=== PATIENT | female | born 1995 | race Caucasian/White ===

== ENCOUNTER 2019-02-08 03:29 | Inpatient (IN) | payer OTHER ==
[~2019-02-08] VITALS: Ht 165.1 cm; Wt 72.6 kg
[2019-02-08 03:45] VITALS: BP_SYST 107
--- NOTE | 2019-02-08 03:45 | NUR ---
Pt c/o generalized and intermittent abdominal pain since 2100 last night after eating iliae sally at a green party. "It feels like someone is punching me in the stomach." Pt states that she vomited x 2 episodes around 0200 this AM. Abdomen soft, tender to RUQ, RLQ, and LLQ. Denies N/V/D at present.
--- NOTE | 2019-02-08 03:45 | NUR ---
Pt ambulatory to bed 8 for evaluation
--- NOTE | 2019-02-08 04:09 | NUR ---
ER Dr. Quiroz at bedside examining patient.
[2019-02-08] MEDS ORDERED: NACL 0.9% 1,000 ML IV ONE (04:14)
[2019-02-08] MEDS ORDERED: DIPHENHYDRAMINE INJ 50 MG/ML VIAL IVP ONE (04:15)
[2019-02-08] MEDS ORDERED: ONDANSETRON HCL 4 MG/2 ML VIAL IVP ONE ×2 (04:15→19:05)
[2019-02-08] MEDS ORDERED: MORPHINE 4 MG/ML INJ. SYRINGE IVP ONE (04:15)
--- NOTE | 2019-02-08 04:35 | NUR ---
# 20 gauge angiocath placed to RAC. Use of asceptic technique. Opsite placed over site. Blood return noted. Blood for lab drawn from site. Flushed with 10 cc of normal saline. No evidence of infiltration noted. Patient tolerated well.
--- NOTE | 2019-02-08 04:40 | NUR ---
Repeat B/P 112/78, P 88 prior to administration of Morphine.
--- NOTE | 2019-02-08 04:55 | NUR ---
Pt to CT via stretcher in stable condition.
[2019-02-08 05:01] LABS: BILIRUBIN,URINE NEGATIVE (NEGATIVE); BLOOD, URINE NEGATIVE (NEGATIVE); CLARITY/URINE CLEAR (CLEAR); COLOR,URINE YELLOW (YELLOW); GLUCOSE,URINE NEGATIVE (NEGATIVE); KETONES,URINE NEGATIVE (NEGATIVE); LEUKOCYTE ESTERASE ,URINE NEGATIVE (NEGATIVE); NITRITE, URINE NEGATIVE (NEGATIVE); PROTEIN URINE NEGATIVE (NEGATIVE); UROBILINOGEN,URINE 0.2 (0.2-1.0)
[2019-02-08 05:10] LABS: BASOPHILS % (AUTO) 0.1 % (0.0-2.0); EOSINOPHILS % (AUTO) 0.2 % (0.0-4.0); HEMATOCRIT 39.9 % (36-48); HEMOGLOBIN 13.4 g/dL (12.0-16.0); LYMPHOCYTES % (AUTO) 11.7 % (20.5-51.5); MEAN CORPUSCULAR HEMOGLOBIN 27 pg (27-31); MEAN CORPUSCULAR HGB CONC 34 % (32-36); MEAN CORPUSCULAR VOLUME 81 fL (79.0-98.0); MONOCYTES # (AUTO) 0.8 K/uL (0.0-1.0); MONOCYTES % (AUTO) 4.7 % (1.7-9.3); NEUTROPHILS # (AUTO) 14.3 K/uL (1.8-7.7); NEUTROPHILS % (AUTO) 83.3 % (40.0-70.0); PLATELET COUNT (AUTO) 360 K/uL (130-430); RED BLOOD CELL COUNT(AUTO) 4.91 MIL/uL (4.2-6.2); RED CELL DISTRIBUTION WIDTH 13.9 % (9.0-15.0); WHITE BLOOD COUNT (AUTO) 17.2 K/uL (4.8-10.8)
[2019-02-08] MEDS ORDERED: IOHEXOL 100 ML IV ONE (05:12)
--- NOTE | 2019-02-08 05:17 | NUR ---
Pt returns from CT, verbalizes improvement in pain. No needs verbalized at this time.
[2019-02-08 05:19] LABS: CALCIUM 8.6 mg/dL (8.4-11.0); CREATININE 0.55 mg/dL (0.55-1.30)
[2019-02-08 05:24] LABS: ALBUMIN 3.7 g/dL (3.4-4.8); TOTAL BILIRUBIN 0.5 mg/dL (0.0-1.0)
--- NOTE | 2019-02-08 05:28 | NUR ---
Stat Rad notified Dr. Quiroz that Pt has Appendicitis.
[2019-02-08] MEDS ORDERED: CEFAZOLIN 1 GM IVPB PREMIX 50 ML IV ONE (05:30)
--- NOTE | 2019-02-08 05:30 | NUR ---
Dr. Quiroz at bedside to discuss POC.
--- NOTE | 2019-02-08 05:55 | NUR ---
Specimens for Blood Cx X 2 and Lactic acid collected and sent to lab prior to administration of IV antibiotics.
[2019-02-08] MEDS ORDERED: MORPHINE 4 MG/ML INJ. SYRINGE IVP PRN (06:00)
[2019-02-08] MEDS ORDERED: ACETAMINOPHEN 325 MG TABLET PO PRN (06:00)
[2019-02-08] MEDS ORDERED: ONDANSETRON HCL 4 MG/2 ML VIAL IVP PRN (06:00)
--- NOTE | 2019-02-08 06:15 | NUR ---
Pt states that she usually takes Levothyroxine 50 mcg q day, but hasn't taken it in over a month. She states that she switch doctors and needs to renew the RX.
--- NOTE | 2019-02-08 06:24 | NUR ---
Patient will be admitted to care of Dr. Rosenthal. Admitted to Med/Surg unit. Will go to room 130A. Belongings list completed. Complete and up to date summary report printed. SBAR report to be given at bedside with opportunity for questions.
--- NOTE | 2019-02-08 06:46 | NUR ---
ADMISSION NOTE Received patient from ER via gurney. Patient admitted with diagnosis of Acute Appendicitis. Patient is awake, alert, oriented x4. Patient oriented to hospital room, call light, toileting, pain management and safety-teach back done. Patient informed that Yohana will be her nurse and that their room number is 130A. Personal belongings checked and Belongings List documented. Call light within reach.
--- NOTE | 2019-02-08 07:45 | NUR ---
opening note patient is resting in bed, no signs of distress at this time, educated information technology assistant light system and plan of care, patient verbalized understanding, visitor at the bedside, bed in lowest position, side rails up, bed alarm on, call light within reach, fall/safety precautions in place, patient is NPO for possible surgery, assisted patient to the bathroom and she walked steady and stable.
[2019-02-08 08:06] VITALS: BP_SYST 94
[2019-02-08] MEDS: LR 1,000 ML IV SCH ×2 (08:22→16:00)
[2019-02-08] MEDS: PIPERACILLIN/TAZO 3.375 GM in NS 50 ML IV SCH ×4 (08:22→23:51)
--- NOTE | 2019-02-08 10:32 | NUR ---
rounds patient is resting in bed, visitor at the bedside, no signs of distress at this time, IVF running and patient tolerating well, no other needs addressed at this time.
[2019-02-08 12:00] VITALS: BP_SYST 94
--- NOTE | 2019-02-08 12:07 | NUR ---
zosyn and prn pain medications patient resting in bed, family in the room, educated on medication use and side effects, patient verbalized understanding and tolerating well, no signs of distress at this time, fall/safety precautions in place.
--- NOTE | 2019-02-08 14:55 | NUR ---
procedure prep patient was given CHG prep wipes for surgery, instructed her on how to do it, patient verbalized understanding.
--- NOTE | 2019-02-08 16:40 | NUR ---
Dr Rosenthal came to see patient to go over surgery.
--- NOTE | 2019-02-08 16:55 | NUR ---
PATIENT OFF UNIT going to surgery.
[2019-02-08] MEDS ORDERED: HYDROmorphone 1 MG INJ. 1 MG/ML AMPUL IVP PRN ×2 (17:45)
[2019-02-08] MEDS ORDERED: HYDROmorphone 2 MG/ML VIAL IVP PRN (17:45)
[2019-02-08] MEDS ORDERED: METOCLOPRAMIDE HCL 10 MG/2 ML VIAL IVP PRN (17:45)
[2019-02-08] MEDS ORDERED: HYDROmorphone 1 MG INJ. 1 MG/ML AMPUL ONE (18:50)
[2019-02-08] MEDS ORDERED: fentaNYL CITRATE 250 MCG/5 ML AMP IV ONE (19:05)
[2019-02-08] MEDS ORDERED: NEOSTIGMINE METHYLSULFATE 1 MG/ML, 10 ML VIAL IVP ONE (19:05)
[2019-02-08] MEDS ORDERED: NS IRRIG SOLN 1000 ML IR ONE (19:05)
[2019-02-08] MEDS ORDERED: GLYCOPYRROLATE 0.2 MG/ML VIAL IJ ONE (19:05)
[2019-02-08] MEDS ORDERED: LR 1,000 ML IV.SOLN IV ONE (19:05)
[2019-02-08] MEDS ORDERED: MIDAZOLAM HCL 5 MG/5 ML VIAL IVP ONE (19:05)
[2019-02-08] MEDS ORDERED: ROCURONIUM BROMIDE 10 MG/ML (ZEMURON) IV ONE (19:05)
[2019-02-08] MEDS ORDERED: SEVOFLURANE 15 MIN GAS INH ONE (19:05)
[2019-02-08] MEDS ORDERED: PIPERACILLIN/TAZOBACTAM 3.375 GM/VIAL (ZOSYN) IV ONE (19:05)
[2019-02-08] MEDS ORDERED: BUPIVACAINE /EPINEPHRINE/PF 0.25% 30 ML VIAL INJ ONE (19:05)
--- NOTE | 2019-02-08 19:10 | NUR ---
Received report from the Day RN. Initial assessment done. Pt. s/p Appendectomy , just arrived from the OR Surgery @ around [id number] PM tonight. Pt. resting with @ the bedside, in Room Air, no s/s of sob/dyspnea. Breathing regular and unlabored. Pt. calm and sleeping. Denies pain and return to sleep. IVF of LR @ 100 mls./hr. continues @ the RAC G # 20.
--- NOTE | 2019-02-08 19:15 | NUR ---
CLOSING NOTE patient back from the PACU, no signs of distress at this time, vitals taken, visitor sat the bedside, bed in lowest position, side rails up, bed alarm on, call light within reach, fall/safety precautions in place, assisted patient to the bathroom and she walked steady and stable, report given to [facility] shift nurse to continue with care.
[2019-02-08 20:00] VITALS: BP_SYST 105
--- NOTE | 2019-02-08 20:00 | NUR ---
Complete assessment done. Pt. awakened, oriented x 4, with @ the bedside. Kept on NPO for 6 hrs. s/p surgery. Pt. given ice chips for dry lips and mouth. INF of LR @ 100 mls./hr continues. Provided assistance with adl's and keep pt. warm and comfortable.
--- NOTE | 2019-02-09 00:35 | NUR ---
NOTES: took over care from nurse Lind.
[2019-02-09 01:00] VITALS: BP_SYST 102
[2019-02-09] MEDS: LR 1,000 ML IV SCH ×2 (01:23→12:19)
[2019-02-09] MEDS: HYDROmorphone 1 MG INJ. 1 MG/ML AMPUL IVP PRN ×2 (01:34→10:05)
--- NOTE | 2019-02-09 01:34 | NUR ---
NOTES: pt. up to the restroom and voided. pt. medicated with IV Dilaudid for c/o post op abdominal pain. repositioned self. IV infusing via rt. antecubital. pt. at bedside. checked abdomen, with 2 small gauze dressing. instructed on deep breathing exercise.
--- NOTE | 2019-02-09 02:30 | NUR ---
NOTES: pt. checked and sleeping, noted relief from pain.
--- NOTE | 2019-02-09 05:00 | NUR ---
NOTES: pt. been sleeping, no distress. IVF infusing well. turn to sides by herself.
[2019-02-09] MEDS: PIPERACILLIN/TAZO 3.375 GM in NS 50 ML IV SCH ×2 (05:35→12:18)
--- NOTE | 2019-02-09 06:00 | NUR ---
NOTES: awakened for IV antibiotic. no complaints of pain at this time. checked abdomen with 3 small gauze dressing. pt. at bedside.
--- NOTE | 2019-02-09 06:45 | NUR ---
CLOSING NOTES; pt. went back to sleep, will start on clear liquid diet this am. pt. already ambulating to the restroom. encouraged on deep breathing. for further observation. IVF continuous. call light within reach.
[2019-02-09 07:09] LABS: BASOPHILS % (AUTO) 0.3 % (0.0-2.0); EOSINOPHILS # (AUTO) 0.1 K/uL (0.0-0.4); EOSINOPHILS % (AUTO) 0.8 % (0.0-4.0); HEMATOCRIT 36.3 % (36-48); HEMOGLOBIN 12.2 g/dL (12.0-16.0); LYMPHOCYTES # (AUTO) 2.4 K/uL (1.0-5.5); LYMPHOCYTES % (AUTO) 22.8 % (20.5-51.5); MEAN CORPUSCULAR HEMOGLOBIN 28 pg (27-31); MEAN CORPUSCULAR HGB CONC 34 % (32-36); MEAN CORPUSCULAR VOLUME 82 fL (79.0-98.0); MONOCYTES # (AUTO) 0.7 K/uL (0.0-1.0); MONOCYTES % (AUTO) 6.3 % (1.7-9.3); NEUTROPHILS # (AUTO) 7.4 K/uL (1.8-7.7); NEUTROPHILS % (AUTO) 69.8 % (40.0-70.0); PLATELET COUNT (AUTO) 323 K/uL (130-430); RED BLOOD CELL COUNT(AUTO) 4.43 MIL/uL (4.2-6.2); RED CELL DISTRIBUTION WIDTH 13.6 % (9.0-15.0); WHITE BLOOD COUNT (AUTO) 10.6 K/uL (4.8-10.8)
--- NOTE | 2019-02-09 07:35 | NUR ---
opening note patient is resting in bed, no signs of distress at this time, patient reported pain 7/10 but does not want any pain medications at this time she states that it is tolerable, educated cable television program director light system and plan of care, patient verbalized understanding, visitor at the bedside, bed in lowest position, side rails up, bed alarm on, call light within reach, fall/safety precautions in place, patient ambulates steady to the bathroom.
[2019-02-09 08:00] VITALS: BP_SYST 104
--- NOTE | 2019-02-09 10:05 | NUR ---
pain medication patient complaining of pain, educated on medication use and side effects, patient verbalized understanding, tolerated well, patient walks steady, LR running at 100ml/hr, patient tolerating well, no other needs at this time, fall/safety precautions in place.
[2019-02-09] MEDS ORDERED: traMADol HCL HCL 50 MG TABLET (ULTRAM) PO PRN (11:00)
[2019-02-09 11:24] VITALS: BP_SYST 104
[2019-02-09 12:00] VITALS: BP_SYST 107
--- NOTE | 2019-02-09 12:18 | NUR ---
shakira patient resting in bed, family in the room, educated on medication use and side effects, patient verbalized understanding and tolerating well, no signs of distress at this time, fall/safety precautions in place.
[2019-02-09] MEDS ORDERED: TRAM50TA2 PO (13:17)
--- NOTE | 2019-02-09 14:26 | NUR ---
D/C Patient 1405 Patient given medication reconciliation form and D/C instructions. Exit Care provided. Patient verbalized understanding. MD discussed with patient the results and treatment provided. Ambulatory with steady gait for discharge to home. Patient in stable condition, ID band removed. IV catheter removed, intact and dressing applied, no active bleeding. Rx of TORADOL given. Patient educated on pain management. All belongings sent with patient.
== END 2019-02-09 14:05 | disposition home or self-care (01) | DRG 343 ==
LOC: SED 03:29 → SMU 05:50
PROVIDERS: ADMIT Surgery; ATTEND Surgery
PROC: 0DTJ4ZZ Resection of Appendix, Percutaneous Endoscopic Approach (ICD-10-PCS; principal; 2019-02-08 17:05)
DX: K35.80 Unspecified acute appendicitis (principal); N73.6 Female pelvic peritoneal adhesions (postinfective); Z87.59 Personal history of other complications of pregnancy, childbirth and the puerperium
CPT/HCPCS: 36415; 80053; 81003; 83605; 83690-TC; 85025; 87040-TC; 87081; 88304; 96361; 96365; 96375; 99285; C1727; J0690; J1170; J1200; J2250; J2270; J2405; J2543; J2710; J3010; J3490; J7030; J7120; Q9967

== ENCOUNTER 2019-03-07 11:33 | Emergency (ER) | payer OTHER ==
[~2019-03-07] VITALS: Ht 165.1 cm; Wt 73.5 kg
[~2019-03-07 11:33] MED LIST: TRAM50TA2 PO
[2019-03-07 11:59] VITALS: BP_SYST 119
--- NOTE | 2019-03-07 12:28 | NUR ---
Patient to ER bed 08 to gown for evaluation. Side rails up.
--- NOTE | 2019-03-07 12:30 | NUR ---
Patient arrived in the ED c/o lower abdominal pain and nausea that started a week ago. Denied any fevers or chills. Alert and oriented x4, respirations even and unlabored, speaking in full sentences and ambulating with a steady gait. VSS, pain level 7/10. Informed of the wait time. Instructed to notify ED staff for any changes in condition or worsening of symptoms. Patient verbalized understanding the message.
--- NOTE | 2019-03-07 12:45 | NUR ---
lidar technician at bedside collecting blood specimen. Patient tolerated the procedure well.
--- NOTE | 2019-03-07 12:52 | NUR ---
ER Dr. Crawford at bedside examining patient.
--- NOTE | 2019-03-07 13:44 | NUR ---
Patient is taken to Ultrasound in stable condition.
--- NOTE | 2019-03-07 14:05 | NUR ---
Patient is back from Ultrasound, in stable condition.
--- NOTE | 2019-03-07 14:06 | NUR ---
Patient given written and verbal discharge instructions and verbalizes understanding. ER MD discussed with patient the results and treatment provided. Patient in stable condition. ID arm band removed. No Rx given. Patient educated on pain management and to follow up with PMD. Pain Scale 0/10. Opportunity for questions provided and answered. Medication side effect fact sheet provided.
[2019-03-07 19:34] VITALS: BP_SYST 119
== END 2019-03-07 19:34 | disposition home or self-care (01) ==
LOC: SED 11:33
DX: O26.891 Other specified pregnancy related conditions, first trimester (principal); O00.90 Unspecified ectopic pregnancy without intrauterine pregnancy; Z3A.01 Less than 8 weeks gestation of pregnancy; Z90.49 Acquired absence of other specified parts of digestive tract
CPT/HCPCS: 36415; 76801; 76817; 81002; 84702-TC; 99284

== ENCOUNTER 2019-08-14 01:45 | Observation (INO) | payer OTHER ==
[~2019-08-14] VITALS: Ht 165.1 cm; Wt 73.9 kg
[2019-08-14] MEDS ORDERED: MORPHINE 2 MG/ML INJ. SYRINGE IVP ONE ×3 (03:15→03:45)
[2019-08-14] MEDS ORDERED: LR 1,000 ML IV SCH (03:15)
[2019-08-14] MEDS ORDERED: MORPHINE SULFATE 10 MG/ML VIAL IVP ONE (03:45)
[2019-08-14 03:53] LABS: BASOPHILS % (AUTO) 0.2 % (0.0-2.0); EOSINOPHILS # (AUTO) 0.1 K/uL (0.0-0.4); EOSINOPHILS % (AUTO) 0.4 % (0.0-4.0); HEMATOCRIT 33.7 % (36-48); HEMOGLOBIN 11.2 g/dL (12.0-16.0); LYMPHOCYTES # (AUTO) 2.2 K/uL (1.0-5.5); LYMPHOCYTES % (AUTO) 15.1 % (20.5-51.5); MEAN CORPUSCULAR HEMOGLOBIN 27 pg (27-31); MEAN CORPUSCULAR HGB CONC 33 % (32-36); MEAN CORPUSCULAR VOLUME 82 fL (79.0-98.0); MONOCYTES # (AUTO) 0.8 K/uL (0.0-1.0); MONOCYTES % (AUTO) 5.4 % (1.7-9.3); NEUTROPHILS # (AUTO) 11.3 K/uL (1.8-7.7); NEUTROPHILS % (AUTO) 78.9 % (40.0-70.0); PLATELET COUNT (AUTO) 257 K/uL (130-430); RED CELL DISTRIBUTION WIDTH 13.5 % (9.0-15.0); WHITE BLOOD COUNT (AUTO) 14.4 K/uL (4.8-10.8)
[2019-08-14 03:55] LABS: CALCIUM 8.2 mg/dL (8.4-11.0); CREATININE 0.51 mg/dL (0.55-1.30); POTASSIUM 3.5 mmol/L (3.5-5.1)
[2019-08-14 04:01] LABS: ALBUMIN 2.3 g/dL (3.4-4.8); TOTAL BILIRUBIN 0.2 mg/dL (0.0-1.0)
[2019-08-14] MEDS ORDERED: MORPHINE SULFATE 10 MG/ML VIAL ONE (04:01)
[2019-08-14] MEDS ORDERED: AMPICILLIN SODIUM 2 GM in NS 100 ML IV ONE (05:30)
[2019-08-14] MEDS ORDERED: AMPICILLIN SODIUM 1 GM in NS 50 ML IV SCH (05:30)
[2019-08-14] MEDS ORDERED: CEFAZOLIN 2 GM IVPB PREMIX 50 ML IV ONE (05:58)
[2019-08-14 09:58] LABS: BILIRUBIN,URINE NEGATIVE (NEGATIVE); BLOOD, URINE NEGATIVE (NEGATIVE); CLARITY/URINE CLEAR (CLEAR); COLOR,URINE YELLOW (YELLOW); GLUCOSE,URINE NEGATIVE (NEGATIVE); KETONES,URINE TRACE (NEGATIVE); LEUKOCYTE ESTERASE ,URINE NEGATIVE (NEGATIVE); NITRITE, URINE NEGATIVE (NEGATIVE); PROTEIN URINE NEGATIVE (NEGATIVE); UROBILINOGEN,URINE 0.2 (0.2-1.0)
[2019-08-14] MEDS ORDERED: HYDROcodone/ACETAMIN 5-325 MG TAB (NORCO/ VICODIN) PO PRN (10:00)
[2019-08-14] MEDS ORDERED: ceFAZolin SODIUM 1 GM VIAL ONE (14:11)
[2019-08-14] MEDS: ceFAZolin SODIUM 2 GM in D5W 100 ML IV SCH (22:11)
[2019-08-15] MEDS: ceFAZolin SODIUM 2 GM in D5W 100 ML IV SCH (05:54)
[2019-08-15] MEDS ORDERED: NORMAL SALINE 5 ML DISP.SYRIN IVF SCH (06:00)
[2019-08-15 07:33] LABS: BASOPHILS % (AUTO) 0.2 % (0.0-2.0); EOSINOPHILS # (AUTO) 0.1 K/uL (0.0-0.4); EOSINOPHILS % (AUTO) 0.7 % (0.0-4.0); HEMATOCRIT 33.1 % (36-48); HEMOGLOBIN 10.9 g/dL (12.0-16.0); LYMPHOCYTES # (AUTO) 3.1 K/uL (1.0-5.5); LYMPHOCYTES % (AUTO) 26.2 % (20.5-51.5); MEAN CORPUSCULAR HEMOGLOBIN 28 pg (27-31); MEAN CORPUSCULAR HGB CONC 33 % (32-36); MEAN CORPUSCULAR VOLUME 83 fL (79.0-98.0); MONOCYTES # (AUTO) 0.7 K/uL (0.0-1.0); MONOCYTES % (AUTO) 5.8 % (1.7-9.3); NEUTROPHILS % (AUTO) 67.1 % (40.0-70.0); PLATELET COUNT (AUTO) 253 K/uL (130-430); RED BLOOD CELL COUNT(AUTO) 3.99 MIL/uL (4.2-6.2); RED CELL DISTRIBUTION WIDTH 13.5 % (9.0-15.0)
[2019-08-15 08:14] LABS: POTASSIUM 3.6 mmol/L (3.5-5.1)
[2019-08-15 08:15] LABS: ALBUMIN 2.1 g/dL (3.4-4.8); CREATININE 0.47 mg/dL (0.55-1.30); TOTAL BILIRUBIN 0.1 mg/dL (0.0-1.0)
== END 2019-08-15 11:00 | disposition home or self-care (01) ==
LOC: SPU 01:45
PROVIDERS: ADMIT Obstetrics & Gynecology; ATTEND Obstetrics & Gynecology
DX: O26.893 Other specified pregnancy related conditions, third trimester (principal); R10.31 Right lower quadrant pain; Z3A.37 37 weeks gestation of pregnancy
CPT/HCPCS: 36415 ×2; 76705; 76805; 80053 ×2; 81002; 81003; 82150; 85025 ×2; 96365; 96366 ×2; G0378; J0690 ×2; J2270 ×2; J7060; J7120